=== PATIENT | male | born 1955 | race Caucasian/White ===

== ENCOUNTER → 2020-12-02 | Outpatient (CLI) | payer OTHER ==
[~2020-12-02] MED LIST: GLUCOSAMINE CH1 EAC2 PO; ZESTRIL10 MG PO
--- NOTE | 2020-12-02 13:42 | EKG ---
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
[2020-12-02 13:50] LABS: HEMATOCRIT 43.9 % (42.0-52.0); HEMOGLOBIN 14.6 gm/dL (14.0-18.0); MCH 30.1 pg (26.0-34.0); MCHC 33.3 g/dL (28.0-37.0); MCV 90.2 fL (80.0-100.0); RBC 4.86 mil/uL (4.50-6.00); RDW 13.2 % (10.5-14.5); WBC 7.3 thou/uL (4.0-11.0)
[2020-12-02 13:54] LABS: URINE BILIRUBIN NEGATIVE (Negative); URINE BLOOD NEGATIVE (Negative); URINE CLARITY CLEAR; URINE COLOR YELLOW; URINE GLUCOSE-RANDOM* NEGATIVE (Negative); URINE KETONES NEGATIVE (Negative); URINE LEUKOCYTES-REFLEX NEGATIVE (Negative); URINE NITRITE-REFLEX NEGATIVE (Negative); URINE PROTEIN (DIPSTICK) NEGATIVE (Negative); URINE UROBILINOGEN 0.2 E.U./dl (0.2-1.0)
[2020-12-02 13:59] LABS: PROTIME 10.9 Seconds (10.5-12.1)
[2020-12-02 14:14] LABS: ALBUMIN 4.4 g/dL (3.4-5.0); CALCIUM 9.2 mg/dL (8.5-10.1); CREATININE 0.8 mg/dL (0.7-1.3); POTASSIUM 4.5 mmol/L (3.5-5.1)
== END ==
LOC: PAC 10:04
PROVIDERS: ATTEND Orthopaedic Surgery
DX: Z01.810 Encounter for preprocedural cardiovascular examination (principal); Z01.812 Encounter for preprocedural laboratory examination; M16.11 Unilateral primary osteoarthritis, right hip; R94.31 Abnormal electrocardiogram [ECG] [EKG]

== ENCOUNTER 2020-12-07 13:14 | Inpatient (IN) | payer OTHER ==
[~2020-12-07] VITALS: Ht 180.3 cm; Wt 99.8 kg
[2020-12-07 14:26] VITALS: BP 130/89
[2020-12-07 18:09] VITALS: BP 120/80
[2020-12-07 20:15] VITALS: BP 146/93
--- NOTE | 2020-12-07 20:15 | NUR ---
PT ARRIVED ON THE UNIT AT 1800. PT HAD RT HIP ARTHROPLASTY. PT ALERT X ORIENTED X 4. ON ROOM AIR. VSS. ON REGULAR DIET. FOOD AND FLUIDS TOLERATING WELL. WAS IN THE ROOM. IV LEFT FA/ D5 1/2 NS RUNNING AT 100MLS/HR. PICCO DRESSING, SCDS/TEDS AND ICE PACKS IN PLACE. PATIENT REPORTED A PAIN OF 4 AND PT WANTED ONLY TYLENOL TO START WITH. ADM HISTORY, ASSESMENTS AND EDUCATION COMPLETED. 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 ABDUCTION PILLOW IN PLACE. FALL PRECAUTION IN PLACE. CALL LIGHT WITHIN REACH. WILL CALL APPROPRIATELY.
[2020-12-08 03:30] VITALS: BP 112/80; BP 122/77
[2020-12-08 07:19] VITALS: BP 114/68
--- NOTE | 2020-12-08 07:59 | NUR ---
PAIN MED GIVEN FOR R HIP PAIN.DRSG TO HIS R HIP DRY AND INTACT.ICE PACK TO HIS R HIP.URINAL AT BEDSIDE.PT CONT ON IVF.IV ABX COMPLETED.[facility] HIS REQUEST.CHAIR ALARM IN PLACE.PT ENCOURAGED TO USE HIS INCENTIVE SPIROMETER.REPORT TO AM NURSE.
--- NOTE | 2020-12-08 08:58 | NUR ---
ASSESSMENT: cM REVIEWED CHART AND SPOKE WITH PATIENT AT THE BEDSIDE. PT IS ALERT AND ORIENTED X4. PT IS S/P TOTAL HIP REPLACEMENT. PT REPORTS HE LIVES IN A HOUSE WITH HIS CHRISTOPHER WHO IS A RN. PT REPORTS THAT HE HAS ABOUT 2 STEPS WITH HANDRAILS TO ENTER THE HOME AND NO STEPS ONCE INSIDE. PT STATES HIS HAS HAS SURGERIS IN THE PAST AND THEY HAVE ALOT OF EQUIPMENT AT HOME IF NEEDED INCLUDING WALKER AND HOSPITAL BED. HE REPORTS THEY HAVE A GRAB BAR IN THE SHOWER. PT REPORTS BEING INDEPENDENT WITH ADLS. PT REPORTS HAVING OUTPATIENT THERAPY ARRANGED AT [facility] TO BEGIN ON SATURDAY AT 0900. CM DISCUSSED ROLE. PT DOES NOT ANTICIPATE HAVING ANY NEEDS FROM CM. PT IS TO WORK WITH THERAPY TODAY.
--- NOTE | 2020-12-08 09:54 | NUR ---
Assumed care of pt at 0700. Pt a&ox4. Pain controlled with prn pain meds. Dressing c/d/i. IVF infusing. SCDs and TUCKER hose in place. Pt will work with physical therapy this morning. Call light within reach. Fall precautions in place. Will continue to monitor.
[2020-12-08 11:26] VITALS: BP 114/68
[2020-12-08 11:42] VITALS: BP 114/68
--- NOTE | 2020-12-15 11:33 | O ---
[facility] [place] [address] OPERATIVE REPORT Name: YASMANI RODRIGUEZ Room #: 443-P [facility] IN M.R.#: [id number] Admission: 12/07/20 Attend Phys: Jaspreet Redman MD Discharge: 12/08/20 Date of : 55 Report #: [id number] THIS REPORT FOR: cc: GONZALO BLANDON MD Physician not on staff Jaspreet Redman MD ~ DOC #: [id number] Jaspreet Redman MD DATE OF SERVICE: 12/07/2020 PREOPERATIVE DIAGNOSIS: Right hip osteoarthritis. POSTOPERATIVE DIAGNOSIS: Right hip osteoarthritis. PROCEDURE: Right total hip arthroplasty. SURGEON: Jaspreet Redamn MD. CENTRAL COMMUNICATIONS SPECIALIST: Carin Acuna PA-C INDICATION FOR CENTRAL COMMUNICATIONS SPECIALIST: Throughout the case extensive retraction and manipulation of the hip including dislocation and reduction was required. This was afforded to me by my assistant unit forester. ANESTHESIA: LMA. IMPLANTS: [employer] size 15 high offset Synergy press-fit stem, a size 60 R3 acetabular cup with one acetabular screw and a size 40 -4 Oxinium head. ESTIMATED BLOOD LOSS: 150 mL. COMPLICATIONS: None. SPECIMENS: None. CONDITION UPON LEAVING OPERATING ROOM: Stable. INDICATIONS FOR PROCEDURE: The patient is a 65-year-old gentleman with severe right hip osteoarthritis. He had failed conservative measures for this and after discussion with him, he elected for right total hip arthroplasty. DESCRIPTION OF PROCEDURE: Risks, benefits, alternatives, complications were discussed in detail with the patient including but not limited to risk of anesthesia, risk of damage to nerves, arteries, blood vessels, risk for infection, bleeding, risk for leg length discrepancy, instability and need for reoperation. Informed consent was obtained from the patient. Right hip was [facility] [address] [place] [address] OPERATIVE REPORT Name: YASMANI RODRIGUEZ Room #: 443-P [facility] IN M.R.#: [id number] Admission: 12/07/20 Attend Phys: Jaspreet Redman MD Discharge: 12/08/20 Date of : 55 Report #: [id number] appropriately marked in the preoperative holding area. IV Ancef was given for preoperative antibiotics. He was brought to the operating room and placed in supine position on the operating room table. LMA anesthesia was induced without complication. He was then placed in the left lateral decubitus position with the right hip uppermost. Right hip and lower extremity were prepped and draped in normal sterile fashion. Timeout was performed properly identifying the patient and procedure as well as the instrumentation and implants. All in the operating room in agreement. Standard posterior approach to the right hip was made with 10 blade through the skin. Dissection was taken down sharply to the fascia with Bovie cautery. A Chairez elevator was used to clean off the fascia. Fresh 10 blade was used to make a fascial incision. This was taken proximally and distally with curved Velásquez scissor. Charnley retractor was placed. Trochanteric bursa was taken down with Bovie cautery. Piriformis tendon was identified, tagged and taken down with Bovie. Short external rotators were also taken down with Bovie cautery. Capsulotomy was made and capsule ends were tagged for later repair. The hip was dislocated. There was extensive osteoarthritic change of the femoral head. Femoral neck cut was made 1 cm proximal to the lesser trochanter based on preoperative templating and femoral head was removed. Deep acetabular retractors were placed. Labrum was removed sharply. Pulvinar was removed with Bovie cautery. Acetabulum was then sequentially reamed up to a size 60, at which point there was excellent bleeding cancellous bone. This was trialed with a size 59 cup, found to have a good fit. Final size 60 R3 acetabular cup was placed and seated. One acetabular screw was placed for backup fixation and a polyethylene liner for a 40 head was placed. Attention was turned to the femur. This was reamed and broached up to a size 15, at which point the size 15 broach was stable. This was trialed with a high offset neck and a 40+0 head. Hip was reduced, taken through range of motion, found to be stable, found to have equal leg lengths. The broach was removed and an Arthrex FiberWire cerclage tape was placed around the proximal femur for prophylactic fixation and final size 15 high offset Synergy press-fit stem was paced and seated. This did not seat quite as far as the broach and so we trialed with a -4, 40 head. Hip was reduced, taken through range of motion, found to be stable, found to have equal leg lengths. Hip was dislocated. The trial head was removed. Final size 40 Oxinium head with a -4 neck was then placed. Hip was reduced, taken through range of motion, found to be stable, found to have equal leg lengths. The wound and hip was irrigated with normal saline. Periarticular injection consisting of morphine, ropivacaine, epinephrine, Toradol was placed around the hip joint capsule. A gram of vancomycin was placed deep in the joint and the capsule. Inferior piriformis were repaired with 0 FiberWire. Fascia was closed with 0 Vicryl. Skin was closed with 2-0 Vicryl, 3-0 Monocryl. Dermabond and a VINITA dressing was applied. The patient tolerated this procedure well and went to recovery room under care of anesthesia postoperatively. Jaspreet Redman MD [facility] [address] [place] [address] OPERATIVE REPORT Name: YASMANI RODRIGUEZ Room #: 443-P [facility] IN M.R.#: [id number] Admission: 12/07/20 Attend Phys: Jaspreet Redman MD Discharge: 12/08/20 Date of : 55 Report #: [id number] [facility] <ELECTRONICALLY SIGNED> By: Jaspreet Redman MD 12/15/20 1133 1544 1812 Jaspreet Redman MD /nt
== END 2020-12-08 13:09 | disposition home or self-care (01) | DRG 470 ==
LOC: OR → 4S 17:40 → OR 21:21 → 4S 21:22
PROVIDERS: ADMIT Orthopaedic Surgery; ATTEND Orthopaedic Surgery
PROC: 0SR906A Replacement of Right Hip Joint with Oxidized Zirconium on Polyethylene Synthetic Substitute, Uncemented, Open Approach (ICD-10-PCS; principal; 2020-12-07)
DX: M16.11 Unilateral primary osteoarthritis, right hip (principal)
CPT/HCPCS: 10102; 50010; 50101; 50382; 50414; 53000; 53078; 53368; 54118; 56524; 56527; 56528; 56531; 57095; 57103; 57978; 57979; 62110; 62900; 70005